=== PATIENT | male | born 1980 | race Hispanic/Latino ===

== ENCOUNTER 2022-02-13 16:56 | Emergency (ER) | payer OTHER ==
[~2022-02-13] VITALS: Ht 182.9 cm; Wt 108.9 kg
[~2022-02-13 16:56] MED LIST: VENLAFAXINE HCL50 MG
[2022-02-13] MEDS ORDERED: CEPHALEXIN500 MG PO (19:12)
[2022-02-13] MEDS ORDERED: BACTRIM DS TAB1 EACH PO (19:12)
[2022-02-13 19:36] VITALS: BP 126/98
== END 2022-02-13 19:41 | disposition home or self-care (01) ==
LOC: ER 17:04
DX: L03.115 Cellulitis of right lower limb (principal); R05.9 Cough, unspecified; R09.89 Other specified symptoms and signs involving the circulatory and respiratory systems; R53.81 Other malaise; Z20.822 Contact with and (suspected) exposure to COVID-19
CPT/HCPCS: 87400; 99283; U0002